=== PATIENT | female | born 1945 | race Caucasian/White ===

== ENCOUNTER 2018-04-24 14:00 | Outpatient (RCR) | payer MEDICARE ==
[2018-04-22 13:10] VITALS: BP 139/77; PULSE 70; TEMP 98.2
[2018-04-23 13:44] VITALS: BP 134/63; PULSE 70; TEMP 97.9
[~2018-04-24] VITALS: Ht 172.7 cm; Wt 98.6 kg
[~2018-04-24 14:00] MED LIST: B-121000 MCG PO; CEPHALEXIN250 M1 PO; LOTREL 10 MG-401 CAP PO; NEURONTIN400 MG/CAP PO; THERACRAN650 MG PO; TOPAMAX 100MG100 M1 PO; TOPAMAX50 MG PO; ULTRAM 50MG TAB50 MG PO; VESICARE10 MG PO; VITAMIN C500 MG PO; VITAMIN D 1001000 IU PO
[2018-04-24 14:19] VITALS: BP 127/55; PULSE 58; TEMP 97.8
== END 2018-04-24 14:24 | disposition home or self-care (01) ==
LOC: EUO 14:00
DX: G35 Multiple sclerosis (principal)
CPT/HCPCS: J2930; J7050

== ENCOUNTER → 2019-01-08 | Outpatient (CLI) | payer MEDICARE | LOC: MC.RAD 09:20 | DX: Z12.31 Encounter for screening mammogram for malignant neoplasm of breast (principal); Z98.82 Breast implant status ==

== ENCOUNTER → 2019-07-11 | Outpatient (CLI) | payer MEDICARE | LOC: COL.RAD 07:10 | DX: M19.012 Primary osteoarthritis, left shoulder (principal) | CPT/HCPCS: J3301; Q9967 ==

== ENCOUNTER 2020-06-28 12:41 | Inpatient (IN) | payer MEDICARE ==
[~2020-06-28] VITALS: Ht 170.2 cm; Wt 111.3 kg
[~2020-06-28 12:41] MED LIST changes: -VITAMIN D 1001000 IU PO; +VITAMIN D31000 IU PO
[2020-08-02] VITALS (11 sets, daily range): BP systolic 102–138; BP diastolic 42–59; PULSE 60–73; TEMP 97.3–98.3
[2020-08-02] MEDS ORDERED: ZETIA 10MG TAB10 MG PO (08:00)
[2020-08-02] MEDS ORDERED: FERROUS GL325 MG/TAB PO (08:02)
[2020-08-02] MEDS ORDERED: METAMUCIL MUL0.52 GM PO (08:04)
--- NOTE | 2020-08-02 09:30 | NUR ---
PATIENT GOING DOWN TO OR VIA BED.
--- NOTE | 2020-08-02 11:27 | NUR ---
Assessment Nurse met with the patient's , Andrew to complete initial intake. The patient was in surgery. The patient and Andrew lives right outside [place]. The patient has a cane and is independent with ADLs. The patient's PCP is Dr. Lovely Samson and patient receives medications from [facility]. The patient does not have advanced directives. Per Andrew, the patient plans to return home at discharge. She was to have OP PT at through Dr. Valle's office at [facility]. He does not know her schedule. There are no additional needs at this time.
--- NOTE | 2020-08-02 15:30 | NUR ---
AT BEDSIDE ROUNDING.
--- NOTE | 2020-08-02 15:30 | NUR ---
PATIENT BACK IN ROOM 330 POST OP. A&O. VSS. DENIES PAIN IN LUE. LEFT SHOULDER DRESSING IS CD&I WITH FOAM DRESSING AND SLING INPLACE. NO C/O N/V. LIQUIDS AT BEDSIDE. HEAD TO TOE ASSESSMENT COMPLETE. AT BEDSIDE. CALL LIGHT IN REACH.
--- NOTE | 2020-08-02 19:00 | NUR ---
RECEIVED CHANGE OF SHIFT REPORT FROM DAY SHIFT NURSE, MARY. IVF INFUSING WITH NO PROBLEMS, PATIENT DENIES URGE TO VOID AT THIS TIME.
--- NOTE | 2020-08-02 19:15 | NUR ---
PATIENT WITH NO C/O PAIN, REPORTS NO TINGLING TO LEFT HAND FINGERS. DENIES URGE TO VOID AT THIS TIME.
--- NOTE | 2020-08-02 20:00 | NUR ---
DECREASED ROM/STRENGTH TO LUE D/T SURGERY AND IMMOBILIZERS W/WEDGE. WIGGLES RIGHT HAND FINGERS ON COMMAND. DENIES CHEST PAIN/SHORTNESS OF BREATHE AT THIS TIME.
[2020-08-03 03:16] VITALS: BP 120/47; PULSE 61; TEMP 97.7
[2020-08-03] MEDS ORDERED: ASPI325T6 PO (07:09)
[2020-08-03] MEDS ORDERED: NORCO 325 MG-7.1 TAB PO (07:09)
[2020-08-03] MEDS ORDERED: ROXICODONE 55 MG/TAB PO (07:10)
--- NOTE | 2020-08-03 07:10 | NUR ---
Change of shift report given to day shift nurseMili. Saline lock in place, patient with no further needs reported.
[2020-08-03 07:54] VITALS: BP 106/70; PULSE 59; TEMP 97.6
[2020-08-03 09:02] LABS: HEMOGLOBIN 10.5 g/dl (12.5-16.0)
[2020-08-03 09:10] LABS: HEMATOCRIT 31.8 % (37.0-47.0)
--- NOTE | 2020-08-03 09:15 | NUR ---
Initial visit; Patient thanked Wearing Apparel Assembler for introducing herself and offering God's blessings.
[2020-08-03 11:58] VITALS: BP 106/39; PULSE 61; TEMP 98.4
--- NOTE | 2020-08-03 14:00 | NUR ---
OT AT BEDSIDE TO EVAL AND TREAT. PATIENT EDUCATED ON DRESSING & SLING.
--- NOTE | 2020-08-03 16:00 | NUR ---
PATIENT IS DISCHARGING HOME VIA WC TO PERSONAL VEHICLE WITH . GAVE DISCHARGE INSTRUCTIONS, PRESCRIPTIONS SENT ELECTRONICALLY, AND F/U APT DISCUSSED. IV DC'D AND COVERED WITH GAUZE & COBAN. ANSWERED ALL QUESTIONS/CONCERNS. GAVE PRN NORCO, ONE TAB FOR PAIN BEFORE DISCHARGE.
== END 2020-08-03 16:00 | disposition home or self-care (01) | DRG 483 ==
LOC: JCC 08-02 07:01
PROVIDERS: ADMIT Orthopaedic Surgery
PROC: 0RRK0JZ Replacement of Left Shoulder Joint with Synthetic Substitute, Open Approach (ICD-10-PCS; principal; 2020-08-02 10:30)
DX: M19.012 Primary osteoarthritis, left shoulder (principal)
CPT/HCPCS: A4314; A4619; A9284; C1713; C1776; J0171; J0330; J0690; J1100; J1885; J2250; J2405; J2704; J2795; J3010; J7120

== ENCOUNTER → 2022-02-27 | Outpatient (CLI) | payer MEDICARE ==
[~2022-02-27] MED LIST changes: +ASPI325T6 PO; +FERROUS GL325 MG/TAB PO; +METAMUCIL MUL0.52 GM PO; +NORCO 325 MG-7.1 TAB PO; +ROXICODONE 55 MG/TAB PO; +ZETIA 10MG TAB10 MG PO
== END ==
LOC: ZCOL.LAB 10:01
DX: Z20.822 Contact with and (suspected) exposure to COVID-19 (principal)

== ENCOUNTER 2023-01-02 15:17 | Inpatient (IN) | payer MEDICARE ==
[~2023-01-02] VITALS: Ht 170.2 cm; Wt 106.8 kg
[2023-01-02 16:18] LABS: BASO % 0.2 % (0.0-2.0); EOS % 0.2 % (0.0-4.0); GRAN # 4.6 K/mm3 (1.4-6.5); GRAN % 78.7 % (42.2-75.2); HEMOGLOBIN 11.5 g/dl (12.5-16.0); LYMPH # 0.7 K/mm3 (1.2-3.4); LYMPH % 11.4 % (20.0-51.0); MEAN CELL VOLUME 98 fl (80.0-100.0); MEAN CORPUSCULAR HEMOGLOBIN 32 pg (27-31); MEAN CORPUSCULAR HGB CONC 32 g/dl (33.0-37.0); MEAN PLATELET VOLUME 11.5 fl (7.4-10.4); MONO # 0.5 K/mm3 (0.1-0.6); MONO % 9.2 % (1.7-9.3); PLATELET COUNT 162 K/mm3 (130-400); RED BLOOD COUNT 3.62 M/mm3 (4.10-5.30); REDCELL DISTRIBUTION WIDTH-CV 12.5 % (11.5-14.5)
[2023-01-02 16:19] LABS: HEMATOCRIT 35.5 % (37.0-47.0)
[2023-01-02 16:26] LABS: INR 1.2 (0.8-3.0); PROTHROMBIN TIME 13.5 SECONDS (9.7-12.8)
[2023-01-02 16:29] LABS: PARTIAL THROMBOPLASTIN TIME 30.8 SECONDS (26.0-37.0)
[2023-01-02 16:50] LABS: ALBUMIN 3.2 gm/dL (3.4-4.8); BILIRUBIN,TOTAL 0.4 mg/dL (0.2-1.2); CALCIUM 8.6 mg/dL (8.4-10.2); CREATININE, serum 0.88 mg/dL (0.57-1.11); POTASSIUM 3.8 mmol/L (3.5-4.5); TOTAL PROTEIN 6.4 gm/dL (6.2-8.1)
[2023-01-02 16:56] LABS: TROPONIN-I 0.025 ng/mL (0.00-0.033)
[2023-01-02] MEDS ORDERED: FOSAMAX 70MG TA70 MG PO (19:22)
[2023-01-02] MEDS ORDERED: UREX1 GM PO (19:23)
[2023-01-02] MEDS ORDERED: ALDACTONE 25MG25 M1 PO (19:23)
[2023-01-02] MEDS ORDERED: ZOCOR 40MG40 MG PO (19:24)
[2023-01-02] MEDS ORDERED: PROAIR HFA0.09 MG/AC IH (19:28)
[2023-01-02] MEDS ORDERED: MONUROL 3 GM3 G/PKT PO (19:28)
[2023-01-02 21:16] VITALS: BP 148/77; PULSE 72; TEMP 98.2
--- NOTE | 2023-01-02 22:30 | NUR ---
Admitted to nedical floor from ER- DX bilateral PE,s,, Heparin drip started in ER at 1900 units/hour {19cc/hr}. Pt states does have some SOB when talking, o2 sats 96-97% on 4L/nc, Tele on SR 60/min. Did get her a supper box- ate fair, Up to bathroom with assist/ Fall risk protocol followed
[2023-01-02 23:27] VITALS: BP 155/77; PULSE 79; TEMP 97.7
--- NOTE | 2023-01-03 00:40 | NUR ---
Hep xa 1.95 ,Heparin drip off at this time for 2 hours and will redraw hepxa at 0240 per protocol.
[2023-01-03 03:06] VITALS: BP 144/63; PULSE 70; TEMP 97.6
--- NOTE | 2023-01-03 06:01 | NUR ---
Heparin drip remains off- waiting for the 0530 hepxa draw result, most recent was stil high at 1.16. o2 at 4L/nc, sats 96-98%.
[2023-01-03 06:35] LABS: BASO % 0.2 % (0.0-2.0); GRAN # 3.4 K/mm3 (1.4-6.5); GRAN % 78.3 % (42.2-75.2); HEMOGLOBIN 10.7 g/dl (12.5-16.0); LYMPH # 0.7 K/mm3 (1.2-3.4); LYMPH % 15.5 % (20.0-51.0); MEAN CELL VOLUME 96 fl (80.0-100.0); MEAN CORPUSCULAR HEMOGLOBIN 32 pg (27-31); MEAN CORPUSCULAR HGB CONC 34 g/dl (33.0-37.0); MONO # 0.2 K/mm3 (0.1-0.6); MONO % 5.3 % (1.7-9.3); PLATELET COUNT 155 K/mm3 (130-400); RED BLOOD COUNT 3.31 M/mm3 (4.10-5.30); REDCELL DISTRIBUTION WIDTH-CV 12.4 % (11.5-14.5)
[2023-01-03 06:41] LABS: HEMATOCRIT 31.8 % (37.0-47.0)
[2023-01-03 06:54] LABS: CREATININE, serum 0.79 mg/dL (0.57-1.11); POTASSIUM 4.3 mmol/L (3.5-4.5)
[2023-01-03 08:15] VITALS: BP 133/61; PULSE 50; TEMP 98.5
--- NOTE | 2023-01-03 10:39 | NUR ---
Human Resources Generalist met with patient to discuss discharge planning. Patient lives at [place], which is outside of [place] with her spouse, Andrew (ph#[phone]) who is at bedside. Patient sees Dr. Escalante for primary care and obtains medications from [facility] with no difficulties. Patient does not normally use home oxygen but is currently requiring it. Patient does not use any assistive devices for walking in the home, but does have a cane she uses when outside of the home. Patient also has a walker available. Patient is normally independent with ADLS. Patient stated she has M.S. and her home is zero entry and ADA compliant. Patient stated she used to have [facility] in [place], where they lived prior to moving to [place]. Patient was interested in obtaining new [facility] form. SW provided and offered assistance if needed. Patient plans to return home at time of discharge. Discharge Plan: Home
--- NOTE | 2023-01-03 10:40 | NUR ---
Initial visit; Patient thanked Shank Paperer for stopping by bud declined Spiritual Care at this time. Shank Paperer wished her well.
[2023-01-03 12:50] VITALS: BP 120/54; PULSE 59; TEMP 98.3
[2023-01-03 15:55] VITALS: BP 125/58; PULSE 63; TEMP 98.3
--- NOTE | 2023-01-03 18:00 | NUR ---
Scheduled medications given. Shift assessment performed. VSS. Patient A&O. Currently requiring 3L of O2 via nasal cannula. Heparin gtt running as ordered. Patient currently resting in bed. Denies any pain, discomfort, SOA, or further needs at this time. Call light in reach. Fall percautions in place.
[2023-01-03 20:10] VITALS: BP 125/54; PULSE 66; TEMP 98.1
--- NOTE | 2023-01-03 21:07 | NUR ---
Patient assessed around 1930. Denies having pain and discomfort. On oxygen at 3 L/min via NC. Continues on Heparin drip per orders. Received IV ABX. Has dry cough. LS CTA. Voices no questions, needs, or concerns at this time. In bed with call light within reach. High fall risk precautions in place.
[2023-01-03 23:08] VITALS: BP 135/58; PULSE 57; TEMP 98.5
[2023-01-04 03:56] VITALS: BP 119/48; PULSE 49; TEMP 98
--- NOTE | 2023-01-04 05:37 | NUR ---
Patient continues on oxygen at 3 L/min via NC. Continues to have dry cough. Given PRN Tessalon Perles during the night. Continues on Heparin drip per orders. Voices no questions, needs, or concerns at this time. In bed with call light within reach.
[2023-01-04 07:38] VITALS: BP 129/73; PULSE 53; TEMP 98.2
--- NOTE | 2023-01-04 08:00 | NUR ---
Assessment complete. A&Ox3. VS stable. Denies nausea. Short of breath with activity. Currently on O2@2.5L/NC. States she is sore in her abdomen and ribs from coughing. Noted to have 2+ edema to lower extremities. Heparin gtt infusing at 1150 units per hour to left hand IV without difficulty. Plan of care discussed for this shift to include meds, lab draws for heparin gtt and doctors rounds. Verbalizes understanding/denies questions/concerns. Call light in reach. Will monitor.
--- NOTE | 2023-01-04 10:25 | NUR ---
Heparin gtt DCd at this time.
--- NOTE | 2023-01-04 10:59 | NUR ---
Cook Chef met with patient to review PT recommendation for Home Health services. Patient and would be open to this but want to review their options. SW provided Medicare.gov list of HH agencies. Discharge Plan: Home with HH
[2023-01-04 11:19] VITALS: BP 120/56; PULSE 55; TEMP 97.9
--- NOTE | 2023-01-04 14:04 | NUR ---
Patient given Tessalon Perles at this time for dry cough.
[2023-01-04 16:00] VITALS: BP 129/52; PULSE 59; TEMP 97.7
--- NOTE | 2023-01-04 19:12 | NUR ---
Patient had an uneventful day. Heparit gtt DCd and eliquis started. O2@@L/NC. Vs remained stable. Denies current needs. Call light in reach. Will monitor.
[2023-01-04 19:34] VITALS: BP 149/51; PULSE 65; TEMP 97.6
--- NOTE | 2023-01-04 20:30 | NUR ---
Initial shift assessment done- tele on-SB,, o2 1L/nc ,sats 93%, Ulram given for pain "all over".Refusing ensure- no other requests.
[2023-01-04 23:11] VITALS: BP 124/50; PULSE 56; TEMP 97.7
[2023-01-05 03:42] VITALS: BP 136/61; PULSE 54; TEMP 97.6
--- NOTE | 2023-01-05 05:56 | NUR ---
Slept fair during the night- o2 at 2L/nc with sats 95%, did get cough medicine x1 during the night.
--- NOTE | 2023-01-05 06:02 | NUR ---
Pt did have SB during the night when sleeping - HR low 40,s per Tele.
[2023-01-05 07:54] VITALS: BP 129/54; PULSE 50; TEMP 98.2
[2023-01-05] MEDS ORDERED: ELIQUIS 5MG PO (08:20)
[2023-01-05] MEDS ORDERED: RT ADVAIR 228 DISKUS IH (08:22)
[2023-01-05] MEDS ORDERED: DECADRON6 MG PO (08:23)
[2023-01-05] MEDS ORDERED: OMNICEF 300MG300 MG PO (08:23)
[2023-01-05] MEDS ORDERED: MUCINEX 60600 MG/TA1 PO (08:39)
--- NOTE | 2023-01-05 08:53 | NUR ---
PT AWAKE AND ALERT IN BED. NO COMPLAINTS OF PAIN OR SOB AT REST. SOB ON EXERTION. IN THE ROOM.
[2023-01-05] MEDS ORDERED: OXYGEN NASAL.CANN (11:27)
[2023-01-05 11:44] VITALS: BP 134/63; PULSE 65; TEMP 98.2
--- NOTE | 2023-01-05 14:46 | NUR ---
ANTONIETTA met with patient to review home health and how oxygen. After review of the [email or web address] list,patient would like to go to [facility] and [facility] for her order. Signed DME order faxed to [facility] and clinical referral faxed to [facility]. Discharge plan: Home w/ [facility] and new oxygen set up.
--- NOTE | 2023-01-05 16:34 | NUR ---
PT DISCHARGED TO HOME WITH . PT AND FAMILY EDUCATED ON NEW MEDICATIONS AND DISCHARGE INSTRUCTIONS. VERBALIZED UNDERSTANDING. OXYGEN DELIVERED TO ROOM, PUT ON PATIENT AND TAKEN OUTSIDE WITH PATIENT. TRANSFERRED SAFELY TO CAR.
== END 2023-01-05 15:30 | disposition home health service (06) | DRG 175 ==
LOC: COL.ER 15:17 → MEDICAL 18:17 → COL.ER 18:17 → MEDICAL 01-03 06:07
PROVIDERS: Emergency Medicine; Student in an Organized Health Care Education/Training Program; ADMIT Internal Medicine
DX: I26.99 Other pulmonary embolism without acute cor pulmonale (principal); J18.9 Pneumonia, unspecified organism; J96.01 Acute respiratory failure with hypoxia; J90 Pleural effusion, not elsewhere classified; I10 Essential (primary) hypertension; E78.5 Hyperlipidemia, unspecified; G35 Multiple sclerosis; G43.909 Migraine, unspecified, not intractable, without status migrainosus; Z96.611 Presence of right artificial shoulder joint; I07.1 Rheumatic tricuspid insufficiency; Z96.612 Presence of left artificial shoulder joint; U09.9 Post COVID-19 condition, unspecified; Z86.718 Personal history of other venous thrombosis and embolism; Z90.710 Acquired absence of both cervix and uterus; Z90.49 Acquired absence of other specified parts of digestive tract; Z88.1 Allergy status to other antibiotic agents; Z88.8 Allergy status to other drugs, medicaments and biological substances; Z91.048 Other nonmedicinal substance allergy status; Z79.82 Long term (current) use of aspirin; Z23 Encounter for immunization
CPT/HCPCS: J0456; J0696; J1100; J1644; J7050; J8540; Q9967

== ENCOUNTER → 2023-02-08 | Outpatient (CLI) | payer MEDICARE ==
[~2023-02-08] MED LIST changes: +ALDACTONE 25MG25 M1 PO; +DECADRON6 MG PO; +ELIQUIS 5MG PO; +FOSAMAX 70MG TA70 MG PO; +MONUROL 3 GM3 G/PKT PO; +MUCINEX 60600 MG/TA1 PO; +OMNICEF 300MG300 MG PO; +OXYGEN NASAL.CANN; +PROAIR HFA0.09 MG/AC IH; +RT ADVAIR 228 DISKUS IH; +UREX1 GM PO; +ZOCOR 40MG40 MG PO
== END ==
LOC: COL.RAD 06:56
DX: J98.4 Other disorders of lung (principal); I26.99 Other pulmonary embolism without acute cor pulmonale

== ENCOUNTER → 2023-04-12 | Outpatient (CLI) | payer MEDICARE | LOC: COL.PUL 09:29 | DX: I51.7 Cardiomegaly (principal); R06.02 Shortness of breath; R93.89 Abnormal findings on diagnostic imaging of other specified body structures | CPT/HCPCS: Q9967 ==

== ENCOUNTER 2023-10-16 12:46 | Outpatient (RCR) | payer MEDICARE ==
[~2023-10-16 12:46] MED LIST changes: +FOLIC ACID 40400 MCG PO; +KESIMPTA P20 MG/0.4 SQ; +KISQALI FEMARA1 EAC2 PO; +LASIX 20MG TABL20 MG PO; +PEPCID 20MG TAB20 MG PO; +URITRAX47 GM PO; +ZOFRAN 4MG T4 MG/TAB PO
== END 2023-11-11 | disposition home or self-care (01) ==
LOC: WSST
DX: R49.0 Dysphonia (principal); R13.10 Dysphagia, unspecified; R41.3 Other amnesia; G35 Multiple sclerosis

== ENCOUNTER 2023-12-13 13:30 | Outpatient (RCR) | payer MEDICARE | END 2023-12-14 09:23 | disposition home or self-care (01) | LOC: WSST 13:30 | DX: R13.10 Dysphagia, unspecified (principal); R49.0 Dysphonia; R41.3 Other amnesia; G35 Multiple sclerosis ==